=== PATIENT | male | born 1955 | race Caucasian/White ===

== ENCOUNTER 2017-08-08 11:31 | Inpatient (IN) ==
--- NOTE | 2017-08-07 15:47 | Discharge Summary ---
<Yenny Sanchez E - Last Filed: 08/07/17 15:45> Date of Encounter: 08/07/17 - Discharge Diagnosis (1) Arthritis of left hip Priority: Primary Status: Chronic (2) Status post total hip replacement, left Priority: Secondary Status: Acute (3) HTN (hypertension) Priority: Secondary Status: Chronic Qualifiers: Hypertension type: unspecified Qualified Code(s): I10 - Essential (primary ) hypertension (4) COPD (chronic obstructive pulmonary disease) Priority: Secondary Status: Chronic Qualifiers: COPD type: unspecified COPD Qualified Code(s): J44.9 - Chronic obstructive pulmonary disease, unspecified (5) HLD (hyperlipidemia) Priority: Secondary Status: Chronic Qualifiers: Hyperlipidemia type: unspecified Qualified Code(s): E78.5 - Hyperlipidemia , unspecified (6) GERD (gastroesophageal reflux disease) Priority: Secondary Status: Chronic Qualifiers: Esophagitis presence: esophagitis presence not specified Qualified Code(s) : K21.9 - Gastro-esophageal reflux disease without esophagitis (7) Diverticulosis Priority: Secondary Status: Chronic Qualifiers: Diverticulosis site: unspecified location Qualified Code(s): K57.90 - Diverticulosis of intestine, part unspecified, without perforation or abscess without bleeding (8) History of meningitis Priority: Secondary Status: Chronic (9) Obesity Priority: Secondary Status: Chronic Qualifiers: Obesity type: unspecified obesity type Obesity classification: unspecified obesity classification Serious obesity comorbidity presence: unspecified whether serious comorbidity present Qualified Code(s): E66.9 - Obesity, unspecified (10) Tobacco dependence Priority: Secondary Status: Chronic - Hospital Course Hospital course: Mr. Botello is a 61 year old male - Time Spent with Patient Total time spent providing and/or coordinating discharge services: - Discharge Medications Home Medications: Amlodipine Besylate 10 mg PO DAILY 05/12/17 [History] Gabapentin [Neurontin] 300 mg PO DAILY 05/12/17 [History] Montelukast [Singulair] 10 mg PO DAILY 05/12/17 [History] Aspirin Enteric Coated [Aspirin EC] 325 mg PO BID 10 Days #20 tab 08/07/17 [Rx] OxyCODONE Immed Rel [Roxicodone 5 MG] 5 mg PO Q6HR PRN 7 Days #28 tablet [Rx] Acetaminophen [Tylenol] 1,000 mg PO TID PRN 08/08/17 [History] Albuterol Sulfate [Ventolin Hfa] 2 puff IH Q4H PRN 08/08/17 [History] Atorvastatin Calcium [Lipitor] 20 mg PO DAILY 08/08/17 [History] Cyclobenzaprine [Flexeril] 10 mg PO TID PRN 08/08/17 [History] Fluticasone Propionate [Flovent Hfa] 110 mcg IH BID 08/08/17 [History] Omeprazole [PriLOSEC] 40 mg PO BID 08/08/17 [History] Tamsulosin [Flomax] 0.4 mg PO DAILY 08/08/17 [History] Allergies/Adverse Reactions: 3 Allergy/AdvReac Type Severity Reaction Status Date / Time No Known Allergies Allergy Verified 08/01/17 10:26 Primary care physician: Abdi Garcia MD - Patient Status Disposition: Home Health Service Condition: Good - Discharge Instructions Follow Up With: Brandin Ghotra MD [Partnered Physician] - 09/07/17 5:05 pm Rohini Paris PAC [Physician Air Pollution Specialist] - 08/18/17 9:30 am Additional Instructions: Discharge Instructions: Total Hip Replacement Please call [facility] ([phone]), your Primary Care Physician, or report to the Emergency Room if you have any of the following symptoms: Nausea, vomiting, fever greater that 101.5, swelling, chest pain, shortness of breath, increased pain/redness/drainage/odor for your incision site, numbness/ tingling, or any other concerning symptoms. ACTIVITY:Weight-bearing as tolerated for 8 weeks with hip dislocation precautions that physical therapy taught you. You may progress as tolerated under the guidance of your physical therapist. You do not need to sleep with a pillow between your legs. You can also seep on the operative side or on your stomach. MEDICATIONS: Upon discharge resume your home medications. Take all the medications as prescribed. Take a stool softener if taking narcotic pain medications. Stool softeners are only effective if you drink enough fluids. Drink 6-8 glass of water or fluids a day, unless this is not allowed for another health problem. Despite using stool softeners, if you haven't had a bowel movement in 3 days, please switch to a gentle laxative. Gentle laxatives are sold over the counter. You should have a bowel movement within 24 hours, if not call the office. You will be discharged from the hospital with a prescription for pain medication. You are encouraged to decrease the use of narcotic pain medication as tolerated. Should you require a refill, please call the office. [facility] prescribes narcotic pain medication for only 4-6 weeks after surgery. If you require pain medication beyond this time period, you may be referred to your Primary Care Physician or to the Pain Clinic for further evaluation. Plan ahead for refills on pain medication as many narcotics either need to be picked up at the office or mailed. It is best to call 48-72 hours in advance of needing a prescription refill so you don't run out of medication. To help control the post-operative pain, you may take NSAIDs (Aleve,Advil, Motrin, ibuprofen, naprosyn) or Tylenol as prescribed on the bottle in addition to the pain medication. ANTICOAGULATION (blood thinners): Continue your Aspirin, Lovenox or Coumadin as prescribed to help prevent a blood clot in the leg or in the lungs. As long as your incision remains dry and you tolerate the NSAIDs (Aleve, Advil, Motrin, Ibuprofen, Naprosyn), it is OK to use the NSAIDS while you are taking your anticoagulation medication. Should your incision start to drain, stop the NSAID and contact our office. Common symptoms of blood clot in the legs include: localized pain, swelling, calf tenderness, redness or discoloration of the skin. Blood clot in the lung symptoms include: shortness of breath, rapid pulse, sweating, and chest pain that worsens with deep breathing, coughing up blood, lightheadedness, feelings of anxiety. If you experience any of these symptoms notify your physician immediately, go to the emergency room, or if having trouble breathing, call 911. WOUND CARE: Leave the dressing on for 7 to 10days. You may change the dressing if it is saturated greater than 50%. Do not get the dressing wet at anytime. Wash your hands with antibacterial soap, rinse and dry prior to any wound care. If you have severo the visiting nurse or rehab facility can remove the stapes 10-14 days after surgery and place steri-strips across the wound. Leave the steri-strips in place until they fall off on their own. You may let water from the shower run on top of the steri-strips. If you do not have a visiting nurse or rehab facility, you will need to return to the office at 10-14 days for the severo to be removed. If you have itching or redness around the dressing call the office. FOLLOW-UP: Please follow up with your surgeon in the orthopedic clinic in 6 weeks from the day of surgery. If you have severo that need to be removed, you will need to come back to the office in 10-14 days from the day of surgery. <Brandin Ghotra - Last Filed: 08/10/17 09:08> Orders not resulted at time of discharge: Pending orders 08/08/17 01:00 XR hip complete LT [XR] Routine Hemoglobin and Hematocrit [HEME] Routine Date of Encounter: 08/10/17 Time of Encounter: 09:07 - Discharge Diagnosis (1) Obesity (BMI 30.0-34.9) Priority: Secondary Status: Chronic (2) Arthritis of left hip Priority: Primary Status: Chronic (3) Status post total hip replacement, left Priority: Primary Status: Acute (4) HLD (hyperlipidemia) Priority: Secondary Status: Chronic Qualifiers: Hyperlipidemia type: unspecified Qualified Code(s): E78.5 - Hyperlipidemia , unspecified (5) GERD (gastroesophageal reflux disease) Priority: Secondary Status: Chronic Qualifiers: Esophagitis presence: esophagitis presence not specified Qualified Code(s) : K21.9 - Gastro-esophageal reflux disease without esophagitis (6) Diverticulosis Priority: Secondary Status: Chronic Qualifiers: Diverticulosis site: unspecified location (7) History of meningitis Priority: Secondary Status: Chronic (8) Tobacco dependence Priority: Secondary Status: Chronic - Hospital Course Hospital course: Mr. Botello is a 61 year old male s/p total hip replacement The patient had an uneventful postoperative course. They received antibiotics and physical therapy and were discharged in stable condition. There will follow -up in the office in 2 weeks. - Time Spent with Patient Total time spent providing and/or coordinating discharge services: Primary care physician: Abdi Garcia MD - Patient Status Functional capacity at discharge: uses cane/walker Overall status at discharge: patient is progressing back to baseline
--- NOTE | 2017-08-07 15:51 | Physician Discharge Referral ---
Home Health/Hosp Referral Info Transfer to: Home Health Attending Provider: Dr Ghotra - Diagnosis (1) Arthritis of left hip Priority: Primary Status: Chronic (2) Status post total hip replacement, left Priority: Primary Status: Acute (3) HTN (hypertension) Priority: Secondary Status: Chronic (4) COPD (chronic obstructive pulmonary disease) Priority: Secondary Status: Chronic (5) HLD (hyperlipidemia) Priority: Secondary Status: Chronic (6) GERD (gastroesophageal reflux disease) Priority: Secondary Status: Chronic (7) Diverticulosis Priority: Secondary Status: Chronic (8) History of meningitis Priority: Secondary Status: Chronic (9) Obesity Priority: Secondary Status: Chronic (10) Tobacco dependence Status: Chronic - Respiratory Orders Smoking Cessation: Smoking cessation has been advised. For more information, call the [employer] Tobacco Quit Line at 9-440-GHKR-NOW. - Dressing/Wound Care Site: left hip Type of Dressing/Treatments w/Frequency: Opsite placed. Keep dressing intact until first follow up appointment. If > 50% saturated, notify office, remove dressing and place appropriate dressing back in place. Leave Zipline intact. Opsite dressing is water resistant, not water- proof. OK to shower, but do not get dressing wet. - Diet/Nutrition Diet/Nutrition Orders: Regular - Activity Activity Orders: Up ad waqas, Ambulate, Chair, Walker Activity: List: Total Hip replacement Precautions Apply cold therapy 3-6x/day for 20 minutes at a time. Encourage ambulation throughout the day and incentive spirometer 10x/hour. Elevate affected extremity as tolerated. Brace: Wear hip abduction pillow when laying/sleeping - Services Needed Following services are medically necessary services: Nursing, Home Health Aide, Physical Therapy, Occupational Therapy, Med Social Work - Transfer Medications Prescriptions: OxyCODONE Immed Rel [Roxicodone 5 MG] 5 mg PO Q6HR PRN 7 Days #28 tablet PRN Reason: Severe Pain Aspirin Enteric Coated [Aspirin EC] 325 mg PO BID 10 Days #20 tab Home Medications: Amlodipine Besylate 10 mg PO DAILY 05/12/17 [History] Gabapentin [Neurontin] 300 mg PO DAILY 05/12/17 [History] Montelukast [Singulair] 10 mg PO DAILY 05/12/17 [History] Omeprazole [PriLOSEC] 20 mg PO DAILY 05/12/17 [History] Aspirin Enteric Coated [Aspirin EC] 325 mg PO BID 10 Days #20 tab 08/07/17 [Rx] OxyCODONE Immed Rel [Roxicodone 5 MG] 5 mg PO Q6HR PRN 7 Days #28 tablet [Rx] Allergies/Adverse Reactions: 3 Allergy/AdvReac Type Severity Reaction Status Date / Time No Known Allergies Allergy Verified 08/01/17 10:26 Certification: Further, I certify that my clinical findings support that this patient is homebound (i.e. absences from home require considerable and taxing effort and are for medical reasons or anabaptist services or infrequently or short duration when for other reasons) because: Homebound Reason: Post-surgery restriction and or conditions limit ability to leave home Attestation: My signature below is to certify that this patient is under my care and that I, or nurse practitioner, or a physician television production assistant working with me, has a face-to- face encounter with this patient.
--- NOTE | 2017-08-08 11:50 | History & Physical Report ---
Date of Encounter: 08/08/17 Time of Encounter: 11:50 24 Hour HP Update - Instructions Instructions: If the History and Physical is less than 30 days old and was completed prior to A.M. admission and or procedure and has NOT been updated on calendar day of procedure please complete this update prior to performing procedure. - Update Patient reports changes in Medical Condition: No Changes in examination, assessment, or condition: No Changes in Medication: No Preop tests/diagnostics Reviewed: Yes Surgery Remains Indicated: Yes Consent for Planned Operative Procedure(s) Verified: Yes - Pre-Operative Checklist Preoperative Checklist Indicated: No Prophylactic Antibiotic Ordered: Yes Is VTE Prophylaxis Indicated?: Yes
[2017-08-08] MEDS ORDERED: CeFAZolin Syr 2,000MG/20 ML 2,000 MG/20 ML SYRINGE IVPB ONE (11:55)
[2017-08-08] MEDS ORDERED: Ringers Solution, Lactated 1,000 ML IVC SCH ×2 (12:00→16:43)
--- NOTE | 2017-08-08 12:34 | Anesthesia Evaluation PreOp ---
Date of Encounter: 08/08/17 Time of Encounter: 12:31 - Past History Planned Operation: Left total hip, robotic Cardiac History: HTN Pulmonary History: Former smoker (quit 1 year ago), Asthma POOL TECHNICIAN History: Other (cervical myofascial pain, right cervical foraminal stenosis , etc -- limited neck ROM) Other Medical History: GERD Anesthesia History: No Prior Anesthetic Complications Alcohol Use: none Drug use: none Medications and Allergies Amlodipine Besylate 10 mg PO DAILY 05/12/17 [History] Gabapentin [Neurontin] 300 mg PO DAILY 05/12/17 [History] Montelukast [Singulair] 10 mg PO DAILY 05/12/17 [History] Aspirin Enteric Coated [Aspirin EC] 325 mg PO BID 10 Days #20 tab 08/07/17 [Rx] OxyCODONE Immed Rel [Roxicodone 5 MG] 5 mg PO Q6HR PRN 7 Days #28 tablet [Rx] Acetaminophen [Tylenol] 1,000 mg PO TID PRN 08/08/17 [History] Albuterol Sulfate [Ventolin Hfa] 2 puff IH Q4H PRN 08/08/17 [History] Atorvastatin Calcium [Lipitor] 20 mg PO DAILY 08/08/17 [History] Cyclobenzaprine [Flexeril] 10 mg PO TID PRN 08/08/17 [History] Fluticasone Propionate [Flovent Hfa] 110 mcg IH BID 08/08/17 [History] Omeprazole [PriLOSEC] 40 mg PO BID 08/08/17 [History] Tamsulosin [Flomax] 0.4 mg PO DAILY 08/08/17 [History] 3 Allergy/AdvReac Type Severity Reaction Status Date / Time No Known Allergies Allergy Verified 08/01/17 10:26 - Meds/Allergy Pre-op Review Medications Reviewed: Yes Allergies Reviewed: Yes Beta Blockers on Current Med List: No Anesthesia Results - Labs Laboratory Tests 06/24/17 08/01/17 08/01/17 14:48 10:14 10:14 WBC 4.9 Hgb 15.0 Hct 44.9 Plt Count 213 PT 11.8 INR 1.1 APTT 30.8 Sodium Potassium Chloride Carbon Dioxide BUN Creatinine Est GFR ( Amer) Est GFR (Non-Af Amer) BUN/Creatinine Ratio Glucose 104 08/01/17 10:14 WBC Hgb Hct Plt Count PT INR APTT Sodium 140 Potassium 4.1 Chloride 107 Carbon Dioxide 27 BUN 10 Creatinine 0.89 Est GFR ( Amer) > 60 Est GFR (Non-Af Amer) > 60 BUN/Creatinine Ratio 11 Glucose - Imaging EKG: report reviewed, image reviewed (SR) Anesthesia Exam Last Vital Signs Temp 98.4 F 08/08/17 11:56 Pulse 72 08/08/17 11:56 Resp 18 08/08/17 11:56 BP 148/76 08/08/17 11:56 Pulse Ox 96 08/08/17 11:56 Weight: 101 kg NPO (# of Hours): > 8 hrs - HEENT Pupil (Motor): Pupils equal, EOMI Mallampati: II Teeth: Normal Oral Opening: Greater than 3 - POOL TECHNICIAN LOC: Oriented - Cardiac Rhythm: Regular Murmur: None - Pulmonary Breath Sounds: bilateral Clear Respiratory Effort: Symmetrical Anesthesia Assess/Plan ASA Score: 2 Modified [place] Scale for Level of Consciousness: Cooperative, oriented, and tranquil Anesthetic Plan: General, Precautions (Patient reluctant to undergo spinal at this time - will proceed with general anesthesia) Monitoring Plan: Standard Monitors Recovery Plan: PACU
[2017-08-08] MEDS ORDERED: *HR* Propofol 200 MG/20 ML VIAL IVP ONE (12:50)
[2017-08-08] MEDS ORDERED: Lidocaine -MPF 2% 2 ML VIAL ONE (12:50)
[2017-08-08] MEDS ORDERED: Propofol 500 MG/50 ML INFUS..BTL ONE (12:50)
[2017-08-08] MEDS ORDERED: Ketorolac 30 MG/ML VIAL ONE (12:50)
[2017-08-08] MEDS ORDERED: *HR* Midazolam HCl 2 MG/2 ML VIAL ONE (13:16)
[2017-08-08] MEDS ORDERED: *HR* FentaNYL (PF) 100 MCG/2 ML VIAL ONE ×2 (13:16→15:04)
[2017-08-08] MEDS ORDERED: Ethanol\\Acetic Acid\\Na Ace\\Ben 1,000 ML IRRIG.SOLN IR ONE (13:30)
[2017-08-08] MEDS ORDERED: Dexamethasone 4 MG/ML VIAL ONE (13:37)
[2017-08-08] MEDS ORDERED: Ondansetron 4 MG/2 ML VIAL ONE (13:37)
[2017-08-08] MEDS ORDERED: *HR* PHENYLEPHRINE 1,000 MCG/10 ML SYRINGE IVP ONE (14:28)
[2017-08-08] MEDS ORDERED: *HR* Promethazine 25 MG/ML VIAL IVP PRN (14:40)
[2017-08-08] MEDS ORDERED: Acetaminophen IV 1,000 MG/100 ML INFUS..BTL ONE (15:12)
--- NOTE | 2017-08-08 15:26 | Orthopedic Operative Note ---
Date of procedure: 08/08/17 Pre-op diagnosis: Left hip arthritis Procedure: Procedure: Left Total Hip Replacment robotic-assisted Estimated blood loss: 200 cc Hardware: Metal and polyethylene replacement. Suhail DM Cup: cup 64 Femoral size 8 stem Head: +12 head with Chanelle Procedural Notes: Grade 4 arthritic changes femoral head acetabular socket, procedure performed with robotic assistance. 1 cm shorter operative leg as assessed by CT scan preoperatively Operative procedure: The patient was brought to the operating room and placed on the operating room table. After general anesthesia was administered the patient was placed in the lateral decubitus position with the operative leg up. All pressure points were padded appropriately and the head was stabilized in the neutral position. The operative extremity was prepped and draped in the sterile surgical fashion patient received IV antibiotic prior to skin incision. 3 Steinmann pins were placed in the iliac crest 3 cm proximal to the anterior superior iliac spine this was for the robotic-assisted sensor. This was done through a small 2 cm incision. A standard posterior approach is made to the operative hip, the incision was made through the skin and subcutaneous tissue hemostasis was obtained with Bovie cautery. Using careful sharp dissection the fascia was identified and incised exposing the external rotators. The femoral checkpoint was placed leg length was measured at this time utilizing robotic assistance. The external rotators were released off the greater trochanter and tagged with # 2 FiberWire suture. The capsule was T'd open and the hip was brought into internal rotation. Patient noted to have grade 4 arthritic changes femoral head. The femoral neck cut was made at the appropriate level roughly 15 mm proximal to the lesser trochanter aced on preoperative templating. An anterior capsulotomy was performed for the anterior retractor. Soft tissues removed from the acetabulum. Patient noted to have grade 4 arthritic changes acetabulum. The acetabulum checkpoint was placed confirmed. The acetabulum was then mapped with robotic assistance. Based on the preoperative plan the acetabulum was reamed in one step with a 63 reamer. The 64 acetabulum was impacted with robotic assistance and 39 degrees of abduction and 24 degrees of anteversion. The hip was brought back in to internal rotation and prepared with the icebox man followed by the canal finder followed by the reaming process to a size 7/ 8 broaching process in 20 degrees anteversion. It was broached up to the appropriate size 8. Trial reduction revealed leg lengths close to normal. The femoral implant was impacted in place in 20 degrees of anteversion. Trial reduction found the hip to be stable with 8 head and Chanelle. The trials were removed and the real implants were impacted in place. The hip was reduced, patient had robotic confirmed leg length of 1 mm longer than the contralateral side. The hip had excellent stability with forward flexion to 90 degrees adduction of 30 degrees and internal rotation of 60 degrees. The hip had no shuck. The hips after 2 minutes with a antibacterial solution. It was irrigated out with 2 L of pulse irrigation. The checkpoints were removed, Steinmann pins were removed. The hip was closed by the PA. The deep tissue was irrigated and closed deep with #1 PDS suture superficially with 0 PDS suture and skin was closed with Dermabond and zip tie. The patient was placed in a sterile dressing and abduction pillow. The patient was extubated and transferred to the recovery room in stable condition. Anesthesia: GETA Surgeon: Brandin Ghotra Was there an electrician's assistant present: Yes Social Worker Clinical: Rohini Paris Estimated blood loss (cc): 200 Condition: stable Disposition: PACU
[2017-08-08] MEDS: *HR* HYDROmorphone (PF) 1 MG/ML SYRINGE IVP PRN ×2 (16:05→16:10)
[2017-08-08] MEDS ORDERED: traMADol 50 MG TABLET PO PRN (16:43)
[2017-08-08] MEDS ORDERED: Sennosides 8.6 MG TABLET PO PRN (16:43)
[2017-08-08] MEDS ORDERED: *HR* OxyCODONE/APAP 5/325 TABLET PO PRN (16:43)
[2017-08-08] MEDS ORDERED: Ondansetron 4 MG/2 ML VIAL IVP PRN (16:43)
[2017-08-08] MEDS ORDERED: Naloxone 0.4 MG/ML INJ IVP PRN (16:43)
[2017-08-08] MEDS ORDERED: MOM Conc 10 ML UD.LIQ PO PRN (16:43)
[2017-08-08] MEDS ORDERED: Temazepam 15 MG CAPSULE PO PRN (16:43)
--- NOTE | 2017-08-08 16:46 | Anesthesia Evaluation Post Op ---
Date of Encounter: 08/08/17 Time of Encounter: 16:44 - Vital Signs Vital Signs: Vital Signs/O2 Sat, Most Current Temp Pulse Resp BP Pulse Ox 97.0 F L 67 16 139/68 98 08/08/17 16:17 08/08/17 16:37 08/08/17 16:37 08/08/17 16:37 08/08/17 16:37 - Lungs Lungs: Clear Ascult./Percussion - Airway Airway: Non-obstructed - Cardiovascular Regular Rate - Mental Status Mental Status: Asleep with brisk response to light stimulation - Pain Pain Scale: 5 Pain Scale used: Numeric (1 - 10) - Nausea Vomiting Nausea Vomiting: Not Present - Hydration Hydration: Ice chips, Has not voided - Discharge PostOp Status: Transfer Patient to floor
[2017-08-08 16:56] LABS: Hematocrit 39.6 % (37.5-50.1); Hemoglobin 13.4 g/dL (12.9-16.9)
[2017-08-08] MEDS: Ascorbic Acid 500 MG TABLET PO SCH (17:13)
[2017-08-08] MEDS: *HR* OxyCODONE Immed Rel 5 MG TABLET PO PRN ×2 (17:14→22:41)
[2017-08-08] MEDS: *HR* Enoxaparin 30 MG/0.3 ML SYRINGE SQ SCH (17:15)
[2017-08-08] MEDS ORDERED: *HR* Enoxaparin 30 MG/0.3 ML SYRINGE SQ SCH (18:00)
[2017-08-08] MEDS: Beclomethasone 80mcg MDI IH SCH (19:58)
[2017-08-08] MEDS ORDERED: CeFAZolin Premix DUPLEX 2,000 MG/50 ML BAG IVPB SCH (22:00)
[2017-08-08] MEDS: CeFAZolin Premix DUPLEX 2,000 MG/50 ML BAG IVPB SCH (22:36)
[2017-08-09 06:06] LABS: Hematocrit 34.7 % (37.5-50.1); Hemoglobin 12.1 g/dL (12.9-16.9)
[2017-08-09 06:23] LABS: BUN/Creatinine Ratio 16 (6-26); Blood Urea Nitrogen 15 mg/dL (6-20); Calcium 8.6 mg/dL (8.6-10.3); Carbon Dioxide 27 mEq/L (23-29); Chloride 103 mEq/L (98-107); Glucose 127 mg/dL (70-105); Osmolality,Calculated 284 (280-300); Potassium 3.9 mEq/L (3.5-5.1); Sodium 136 mEq/L (136-145); eGFR For African Americans > 60 (> 60); eGFR For Non-African Americans > 60 (> 60)
[2017-08-09] MEDS: CeFAZolin Premix DUPLEX 2,000 MG/50 ML BAG IVPB SCH (06:34)
[2017-08-09] MEDS: *HR* Enoxaparin 30 MG/0.3 ML SYRINGE SQ SCH ×2 (06:35→16:57)
[2017-08-09] MEDS: *HR* OxyCODONE Immed Rel 5 MG TABLET PO PRN ×3 (06:41→15:34)
--- NOTE | 2017-08-09 07:06 | Orthopedics Progress Note ---
Date of Encounter: 08/09/17 Time of Encounter: 07:05 - Assessment and Plan (1) Obesity (BMI 30.0-34.9) Current Visit: Yes Status: Chronic (2) Arthritis of left hip Current Visit: No Status: Chronic (3) Status post total hip replacement, left Current Visit: No Status: Acute (4) HLD (hyperlipidemia) Current Visit: No Status: Chronic Qualifiers: Hyperlipidemia type: unspecified Qualified Code(s): E78.5 - Hyperlipidemia , unspecified (5) GERD (gastroesophageal reflux disease) Current Visit: No Status: Chronic Qualifiers: Esophagitis presence: esophagitis presence not specified Qualified Code(s) : K21.9 - Gastro-esophageal reflux disease without esophagitis (6) Diverticulosis Current Visit: No Status: Chronic Qualifiers: Diverticulosis site: unspecified location Qualified Code(s): K57.90 - Diverticulosis of intestine, part unspecified, without perforation or abscess without bleeding (7) History of meningitis Current Visit: No Status: Chronic (8) Tobacco dependence Current Visit: No Status: Chronic Subjective Interval history: Patient was seen this morning doing well without complaints. Afebrile vital signs stable. Operative extremity: Neurovascularly intact Dressing clean dry and intact Calves nontender Assessment and plan: Continue with postoperative care Hematocrit 34 Objective Vital signs: Vital Signs Temp Pulse Resp BP Pulse Ox 08/09/17 02:35 98.7 F 69 16 132/75 94 08/08/17 23:49 97.9 F 72 17 136/76 97 08/08/17 19:58 16 97 08/08/17 17:56 97.6 F 83 16 151/79 98 08/08/17 17:20 144/58 97 08/08/17 17:07 97.4 F L 79 16 129/68 97 08/08/17 16:46 97.4 F L 68 16 122/70 96 08/08/17 16:37 67 16 139/68 98 08/08/17 16:27 69 16 130/75 97 08/08/17 16:17 97.0 F L 78 16 135/98 95 08/08/17 16:07 75 20 109/99 98 08/08/17 15:57 75 20 140/90 95 08/08/17 15:47 97.0 F L 83 20 136/79 99 08/08/17 11:56 98.4 F 72 18 148/76 96 Intake and Output 08/08/17 08/08/17 08/09/17 15:59 23:59 07:59 Intake Total 20 290 / 290 0 / 0 Output Total 200 / 200 475 / 475 0 / 0 Balance -180 / -180 -185 / -185 0 / 0 Intake: IV Fluids / 20 50 / 50 Ancef Premix DUPLEX 2,000 mg In 50 / 50 50 ml @ 100 mls/hr IVPB Q8H CLARISA Rx#:[id number] Ancef Syringe 2,000 MG/20 ML 2, 20 / 20 000 mg In 20 ml @ 200 mls/hr IVPB PREOP ONE Rx#:[id number] Oral 240 / 240 0 / 0 Output: Urine 475 / 475 0 / 0 Estimated Blood Loss 200 / 200 Other: Meal Dinner Percent of Meal Consumed 90% Weight 100.698 kg 106.44 kg Patient Weight 08/09/17 23:59 Weight 106.44 kg - Labs CBC & BMP: 08/09/17 05:32 08/09/17 05:32 Labs: Abnormal lab results Hgb 12.1 g/dL (12.9-16.9) L 08/09/17 05:32 Hct 34.7 % (37.5-50.1) L 08/09/17 05:32 Glucose 127 mg/dL (70-105) H 08/09/17 05:32 - VTE Documentation of Mechanical Device: Venous foot pump, device Consult Discharge Plan - Plan Referrals: Abdi Garcia MD [Primary Care Provider] -
[2017-08-09] MEDS: Beclomethasone 80mcg MDI IH SCH ×2 (07:17→20:29)
[2017-08-09] MEDS: amLODIPine 5 MG TABLET PO SCH (08:04)
[2017-08-09] MEDS: Multivit/Ca/Min/Fe/FA 1 TAB TABLET PO SCH (08:04)
[2017-08-09] MEDS: Ascorbic Acid 500 MG TABLET PO SCH ×2 (08:04→16:57)
[2017-08-09] MEDS: Gabapentin 300 MG CAPSULE PO SCH (08:05)
--- NOTE | 2017-08-09 17:40 | Event Note ---
Date of Encounter: 08/09/17 Time of Encounter: 12:45 PCR- POD#1 L THR robotic 08/08/17 Brandin PCR - Patient seen at bedside. Labwork and medications reviewed. Pain control: Adequate Participating in PT. All questions and concerns addressed. Educated on use of incentive spirometer, ambulation, and hydration. Patient educated on post-operative restrictions and care. Addressed: see above. D/C plan: Home with
[2017-08-10] MEDS: *HR* OxyCODONE Immed Rel 5 MG TABLET PO PRN ×2 (01:27→06:09)
[2017-08-10] MEDS: *HR* Enoxaparin 30 MG/0.3 ML SYRINGE SQ SCH (06:09)
[2017-08-10 06:28] LABS: Hematocrit 32.2 % (37.5-50.1)
[2017-08-10 06:29] VITALS: BP 132/72
[2017-08-10 06:49] LABS: BUN/Creatinine Ratio 12 (6-26); Blood Urea Nitrogen 13 mg/dL (6-20); Calcium 8.6 mg/dL (8.6-10.3); Carbon Dioxide 30 mEq/L (23-29); Chloride 104 mEq/L (98-107); Glucose 100 mg/dL (70-105); Osmolality,Calculated 288 (280-300); Potassium 4.1 mEq/L (3.5-5.1); Sodium 139 mEq/L (136-145); eGFR For African Americans > 60 (> 60); eGFR For Non-African Americans > 60 (> 60)
[2017-08-10] MEDS: Ascorbic Acid 500 MG TABLET PO SCH (08:00)
[2017-08-10] MEDS: Multivit/Ca/Min/Fe/FA 1 TAB TABLET PO SCH (08:01)
[2017-08-10] MEDS: Gabapentin 300 MG CAPSULE PO SCH (08:01)
[2017-08-10] MEDS: amLODIPine 5 MG TABLET PO SCH (08:03)
[2017-08-10] MEDS: Beclomethasone 80mcg MDI IH SCH (08:14)
--- NOTE | 2017-08-10 09:11 | Orthopedics Progress Note ---
Date of Encounter: 08/10/17 Time of Encounter: 09:09 - Assessment and Plan (1) Obesity (BMI 30.0-34.9) Current Visit: Yes Status: Chronic (2) Arthritis of left hip Current Visit: No Status: Chronic (3) Status post total hip replacement, left Current Visit: No Status: Acute (4) HLD (hyperlipidemia) Current Visit: No Status: Chronic Qualifiers: Hyperlipidemia type: unspecified Qualified Code(s): E78.5 - Hyperlipidemia , unspecified (5) GERD (gastroesophageal reflux disease) Current Visit: No Status: Chronic Qualifiers: Esophagitis presence: esophagitis presence not specified Qualified Code(s) : K21.9 - Gastro-esophageal reflux disease without esophagitis (6) Diverticulosis Current Visit: No Status: Chronic Qualifiers: Diverticulosis site: unspecified location Diverticulosis bleeding: diverticulosis without bleeding Qualified Code(s): K57.90 - Diverticulosis of intestine, part unspecified, without perforation or abscess without bleeding (7) History of meningitis Current Visit: No Status: Chronic (8) Tobacco dependence Current Visit: No Status: Chronic Subjective Interval history: Patient was seen this morning doing well without complaints. Afebrile vital signs stable. Operative extremity: Neurovascularly intact Dressing clean dry and intact Calves nontender Assessment and plan: Continue with postoperative care Hematocrit 32 dc today Objective Vital signs: Vital Signs Temp Pulse Resp BP Pulse Ox 08/10/17 08:19 92 08/10/17 08:15 16 96 08/10/17 06:26 98.0 F 82 16 132/72 92 08/10/17 00:38 98.4 F 74 14 120/73 96 08/09/17 20:30 12 97 08/09/17 19:29 98.2 F 69 14 146/81 96 08/09/17 16:12 98.9 F 67 16 123/73 97 08/09/17 11:46 98.7 F 72 18 112/71 95 Intake and Output 08/09/17 08/10/17 08/10/17 23:59 07:59 15:59 Intake Total 690 / 690 350 / 350 240 / 240 Output Total 575 / 575 855 / 855 Balance 115 / 115 -505 / -505 240 / 240 Intake: Oral 690 / 690 350 / 350 240 / 240 Output: Urine 575 / 575 855 / 855 Other: Meal Lunch Breakfast Percent of Meal Consumed 80% 95% - Labs CBC & BMP: 08/10/17 05:45 08/10/17 05:45 Labs: Abnormal lab results Hgb 11.0 g/dL (12.9-16.9) L 08/10/17 05:45 Hct 32.2 % (37.5-50.1) L 08/10/17 05:45 Carbon Dioxide 30 mEq/L (23-29) H 08/10/17 05:45 - VTE Documentation of Mechanical Device: Venous foot pump, device Consult Discharge Plan - Plan Additional Instructions: Discharge Instructions: Total Hip Replacement Please call [facility] ([phone]), your Primary Care Physician, or report to the Emergency Room if you have any of the following symptoms: Nausea, vomiting, fever greater that 101.5, swelling, chest pain, shortness of breath, increased pain/redness/drainage/odor for your incision site, numbness/ tingling, or any other concerning symptoms. ACTIVITY:Weight-bearing as tolerated for 8 weeks with hip dislocation precautions that physical therapy taught you. You may progress as tolerated under the guidance of your physical therapist. You do not need to sleep with a pillow between your legs. You can also seep on the operative side or on your stomach. MEDICATIONS: Upon discharge resume your home medications. Take all the medications as prescribed. Take a stool softener if taking narcotic pain medications. Stool softeners are only effective if you drink enough fluids. Drink 6-8 glass of water or fluids a day, unless this is not allowed for another health problem. Despite using stool softeners, if you haven't had a bowel movement in 3 days, please switch to a gentle laxative. Gentle laxatives are sold over the counter. You should have a bowel movement within 24 hours, if not call the office. You will be discharged from the hospital with a prescription for pain medication. You are encouraged to decrease the use of narcotic pain medication as tolerated. Should you require a refill, please call the office. [facility] prescribes narcotic pain medication for only 4-6 weeks after surgery. If you require pain medication beyond this time period, you may be referred to your Primary Care Physician or to the Pain Clinic for further evaluation. Plan ahead for refills on pain medication as many narcotics either need to be picked up at the office or mailed. It is best to call 48-72 hours in advance of needing a prescription refill so you don't run out of medication. To help control the post-operative pain, you may take NSAIDs (Aleve,Advil, Motrin, ibuprofen, naprosyn) or Tylenol as prescribed on the bottle in addition to the pain medication. ANTICOAGULATION (blood thinners): Continue your Aspirin, Lovenox or Coumadin as prescribed to help prevent a blood clot in the leg or in the lungs. As long as your incision remains dry and you tolerate the NSAIDs (Aleve, Advil, Motrin, Ibuprofen, Naprosyn), it is OK to use the NSAIDS while you are taking your anticoagulation medication. Should your incision start to drain, stop the NSAID and contact our office. Common symptoms of blood clot in the legs include: localized pain, swelling, calf tenderness, redness or discoloration of the skin. Blood clot in the lung symptoms include: shortness of breath, rapid pulse, sweating, and chest pain that worsens with deep breathing, coughing up blood, lightheadedness, feelings of anxiety. If you experience any of these symptoms notify your physician immediately, go to the emergency room, or if having trouble breathing, call 911. WOUND CARE: Leave the dressing on for 7 to 10days. You may change the dressing if it is saturated greater than 50%. Do not get the dressing wet at anytime. Wash your hands with antibacterial soap, rinse and dry prior to any wound care. If you have severo the visiting nurse or rehab facility can remove the stapes 10-14 days after surgery and place steri-strips across the wound. Leave the steri-strips in place until they fall off on their own. You may let water from the shower run on top of the steri-strips. If you do not have a visiting nurse or rehab facility, you will need to return to the office at 10-14 days for the severo to be removed. If you have itching or redness around the dressing call the office. FOLLOW-UP: Please follow up with your surgeon in the orthopedic clinic in 6 weeks from the day of surgery. If you have severo that need to be removed, you will need to come back to the office in 10-14 days from the day of surgery. Referrals: Brandin Ghotra MD [Partnered Physician] - 09/07/17 5:05 pm Rohini Paris PAC [Physician Sugar Refiner] - 08/18/17 9:30 am
--- NOTE | 2017-08-10 17:46 | Event Note ---
Date of Encounter: 08/10/17 Time of Encounter: 11:40 PCR- POD#2 L THR robotic 08/08/17 Brandin PCR - Patient seen at bedside. Family at bedside. Labwork and medications reviewed. Pain control: Adequate Participating in PT. All questions and concerns addressed. Educated on use of incentive spirometer, ambulation, and hydration. Patient educated on post-operative restrictions and care. Addressed: see above. D/C plan: Home with HH today
== END 2017-08-10 11:49 | disposition home health service (06) | DRG 301 ==
LOC: SAMDAY 11:31 → 3NENU 16:41 → EDSTATUS 17:20
PROVIDERS: ADMIT Orthopaedic Surgery; ATTEND Orthopaedic Surgery

== ENCOUNTER 2018-04-06 10:02 | Observation (INO) ==
[2018-04-06 10:53] LABS: Basophils % 0.2 %; Eosinophils % 0.6 %; Hematocrit 42.4 % (37.5-50.1); Hemoglobin 14.3 g/dL (12.9-16.9); Immature Granulocytes % 0.2 % (0-4); Lymphocytes # 1.1 K/mcL (0.6-4.6); Lymphocytes % 20.5 %; Mean Corpuscular HGB Conc 33.7 g/dL (31.6-35.5); Mean Corpuscular Hemoglobin 30.1 pg (28.0-33.3); Mean Corpuscular Volume 89.3 fL (83.0-100.0); Mean Platelet Volume 12.2 fL (9.4-12.4); Monocytes # 0.3 K/mcL (0.0-1.3); Monocytes % 6.5 %; Neutrophils # 3.8 K/mcL (1.6-8.9); Platelet Count 160 K/mcL (140-400); Red Blood Count 4.75 M/mcL (4.19-5.50); Red Cell Distribution Width 12.8 % (11.5-14.5)
[2018-04-06] MEDS ORDERED: Isovue-370 500 ML INFUS..BTL IV ONE (10:58)
[2018-04-06 11:10] LABS: BUN/Creatinine Ratio 13 (6-26); Blood Urea Nitrogen 11 mg/dL (8-23); Calcium 9.1 mg/dL (8.6-10.3); Carbon Dioxide 27 mEq/L (23-29); Chloride 106 mEq/L (98-107); Glucose 123 mg/dL (70-105); Osmolality,Calculated 289 (280-300); Potassium 3.9 mEq/L (3.5-5.1); Sodium 139 mEq/L (136-145); Troponin I < 0.03 ng/mL (< 0.04); eGFR For Non-African Americans > 60 (> 60)
[2018-04-06 11:27] LABS: Bilirubin,Urine Negative (Negative); Blood,Urine Negative (Negative); Clarity,Urine Clear (Clear); Color,Urine Yellow (Yellow); Glucose,Urine (UA) Normal (Normal); Ketones,Urine Negative (Negative); Leukocyte Esterase,Urine Negative (Negative); Nitrite,Urine Negative (Negative); PH,Urine 7.5 pH Units (5.0-8.0); Protein,Urine Negative (Neg-Trace); Specific Gravity,Urine 1.013 (1.010-1.025); Urobilinogen,Urine Normal (Normal)
[2018-04-06] MEDS: 0.9 % Sodium Chloride 1,000 ML IVC SCH ×2 (11:34→20:34)
--- NOTE | 2018-04-06 11:40 | Emergency Department Note ---
Disposition Clinical Impression: HTN (hypertension), Dizziness, Nystagmus Disposition: Admitted As Inpatient Condition: Fair Referrals: NONE,PCP [Primary Care Provider] - Forms: ED Satisfaction Letter Time of Disposition: 12:53 General Adult HPI - General Chief complaint: ED Dizziness Stated complaint: Dizzy Time Seen by Provider: 04/06/18 10:06 Source: patient Limitations: no limitations - History of Present Illness Pain Scale: 5 - Related Data Home Medications Medication Instructions Recorded Confirmed Amlodipine Besylate 10 mg PO DAILY 05/12/17 08/08/17 Gabapentin [Neurontin] 300 mg PO DAILY 05/12/17 08/08/17 Montelukast [Singulair] 10 mg PO DAILY 05/12/17 08/08/17 Acetaminophen [Tylenol] 1,000 mg PO TID PRN 08/08/17 08/08/17 Albuterol Sulfate [Ventolin Hfa] 2 puff IH Q4H PRN 08/08/17 08/08/17 Atorvastatin Calcium [Lipitor] 20 mg PO DAILY 08/08/17 08/08/17 Cyclobenzaprine [Flexeril] 10 mg PO TID PRN 08/08/17 08/08/17 Fluticasone Propionate [Flovent 110 mcg IH BID 08/08/17 08/08/17 Hfa] Omeprazole [PriLOSEC] 40 mg PO BID 08/08/17 08/08/17 Tamsulosin [Flomax] 0.4 mg PO DAILY 08/08/17 08/08/17 Previous Rx's Medication Instructions Recorded Aspirin Enteric Coated [Aspirin EC] 325 mg PO BID 10 Days #20 tab 08/07/17 OxyCODONE Immed Rel [Roxicodone 5 5 mg PO Q6HR PRN 7 Days #28 tablet 08/07/17 MG] Allergies Allergy/AdvReac Type Severity Reaction Status Date / Time No Known Allergies Allergy Verified 10/08/17 09:31 Past Medical History - Past Medical History Medical history: Reports: arthritis, asthma, GERD, hyperlipidemia, hypertension, renal disease Surgical history: Reports: orthopedic, other Psychiatric history: Reports: no psych history - Social History Smoking Status: Former smoker Smokeless Tobacco Status: No Alcohol use: Reports: none Drug use: Reports: none Physical Exam - General Limitations: no limitations General appearance: alert, in no apparent distress Course Vital Signs Temperature 97.8 F 04/06/18 10:06 Pulse Rate 75 04/06/18 10:06 Respiratory Rate 18 04/06/18 10:06 Blood Pressure 215/116 04/06/18 10:06 O2 Sat by Pulse Oximetry 98 04/06/18 10:06 Temperature 97.8 F 04/06/18 10:14 Pulse Rate 62 04/06/18 12:16 Respiratory Rate 16 04/06/18 12:16 Blood Pressure 142/72 04/06/18 12:16 O2 Sat by Pulse Oximetry 99 04/06/18 12:16 Oxygen Delivery Oxygen Delivery Room Air Medical Decision Making - Lab Data Result diagrams: 04/06/18 10:38 04/06/18 10:38 Lab Results 04/06/18 04/06/18 04/06/18 Range/Units 10:38 10:38 11:00 WBC 5.2 (4.3-11.1) K/mcL RBC 4.75 (4.19-5.50) M/mcL Hgb 14.3 (12.9-16.9) g/dL Hct 42.4 (37.5-50.1) % MCV 89.3 (83.0-100.0) fL MCH 30.1 (28.0-33.3) pg MCHC 33.7 (31.6-35.5) g/dL RDW 12.8 (11.5-14.5) % Plt Count 160 (140-400) K/mcL MPV 12.2 (9.4-12.4) fL Immature Gran % 0.2 (0-4) % Seg Neutrophils % 72.0 % Lymphocytes % 20.5 % Monocytes % 6.5 % Eosinophils % 0.6 % Basophils % 0.2 % Neutrophils # 3.8 (1.6-8.9) K/mcL Lymphocytes # 1.1 (0.6-4.6) K/mcL Monocytes # 0.3 (0.0-1.3) K/mcL Eosinophils # 0.0 (0.0-0.6) K/mcL Basophils # 0.0 (0.0-0.2) K/mcL Sodium 139 (136-145) mEq/L Potassium 3.9 (3.5-5.1) mEq/L Chloride 106 (98-107) mEq/L Carbon Dioxide 27 (23-29) mEq/L BUN 11 (8-23) mg/dL Creatinine 0.86 (0.70-1.30) mg/dL Est GFR ( Amer) > 60 (> 60) Est GFR (Non-Af Amer) > 60 (> 60) BUN/Creatinine Ratio 13 (6-26) Glucose 123 H (70-105) mg/dL Calculated Osmolality 289 (280-300) Calcium 9.1 (8.6-10.3) mg/dL Troponin I < 0.03 (< 0.04) ng/mL Urine Color Yellow (Yellow) Urine Clarity Clear (Clear) Urine pH 7.5 (5.0-8.0) pH Units Ur Specific [place] 1.013 (1.010-1.025) Urine Protein Negative (Neg-Trace) mg/dL Urine Glucose (UA) Normal (Normal) mg/dL Urine Ketones Negative (Negative) mg/dL Urine Blood Negative (Negative) Urine Nitrite Negative (Negative) Urine Bilirubin Negative (Negative) Urine Urobilinogen Normal (Normal) mg/dL Ur Leukocyte Esterase Negative (Negative) Ur Culture Indicated? NO (NO) Attestation Statement - Attestation Attestation: I, Brent Webber DO, examined this patient [id number] and my medical decision-making was reviewed with Cahva Ospina DO , Resident Physician. I agree with the documented findings, disposition and treatment plan as described except to the extent set forth below. Please see my progress notes for details. 62-year-old male presents to the emergency room for evaluation of right-sided neck pain and tingling sensation on his right arm as well as persistent dizziness over the last 2-3 days. Patient said that the symptoms were present last night when he went to bed but not nearly as bad as they were this morning when he woke up. Patient denies any falls trauma or injury. He has a history of intermittent dizziness in the past but is never been seen and evaluated or treated for it. Currently, he is denying chest pain, shortness of breath, nausea, vomiting, diarrhea. Denies any fevers or chills. Has not traveled outside the country and has no known exposures or other illnesses. Vital signs on presentation do so significantly elevated blood pressure. Otherwise they are unremarkable. Timeframe does not make the patient a candidate for acute stroke intervention. He will be evaluated as such though. CT CT angiography of the head and neck will all be ordered at this time. Review the patient's labs from the 13th of this month showed normal creatinine as well as GFR. CBC chemistry repeat labs will be ordered along with urinalysis. Patient will be provided with fluids and meclizine. We will monitor closely. His physical exam shows a well-appearing male who does not appear to be in any specific distress. He did ambulate back from the triage area to his bed without any difficulty or visible signs of ataxia. On my evaluation his head is atraumatic. His pupils are equal round reactive. He does have bilateral nystagmus that does not appear to fatigue. Is difficult to differentiate whether or not this is rotatory when he has an upward gaze or downward gaze he does not have any nystagmus noted. His oropharynx is patent uvulas midline. He has no stridor no trismus. He has full range of motion of the neck. No bruits are auscultated. He moves his upper and lower extremities without any deficit or difficulty. He has no visible signs of facial asymmetry or neurologic deficits at this time. Concern is still noted for vascular related etiology to the symptoms here today. He will be treated as such and then discuss disposition. Patient may require admission for continuation of care. Lungs are clear heart is regular abdomen is soft. We will continue to monitor closely until the disposition is determined. See detailed documentation of the physical exam, medical intervention, medical decision-making and disposition in the resident physician's note. Again, the timeframe of the symptom onset is been several days with a slow progression. Patient has not had any tick bites or other exposure to note at this time. 1215 CT angiography of the head and neck did not show any acute or significant vascular abnormalities at this point. Patient is still having the dizziness. He will be admitted for continuation of care secondary to the concerning findings with central versus peripheral vertigo-like presentation. Hospitals will be contacted at this point for the admission process to be completed. Blood pressure resolved 140/85 without any intervention. 1250 Patient was discussed with the hospitalist Dr. Toledo. Detailed review the pre sentation, symptoms, imaging modalities and recommendations for admission were discussed at length. No acute etiology noted on the CT angiography of the head and neck outside of fibrous related presentation to the posterior carotid area bilaterally. No visible signs of stroke or vascular significant stenosis at this time. Patient will be admitted for continuation of care and observation. No other acute etiology noted during the treatment course. Patient will be observed here in the emergency room until admission process is completed.
[2018-04-06] MEDS ORDERED: *HR* Labetalol 20 MG/4 ML SYRINGE IVP ONE (11:41)
[2018-04-06] MEDS ORDERED: Aspirin 325 MG TABLET PO ONE (12:42)
--- NOTE | 2018-04-06 12:50 | Emergency Department Note ---
Disposition Clinical Impression: Dizziness, Nystagmus HTN (hypertension) Qualifiers: Hypertension type: unspecified Qualified Code(s): I10 - Essential (primary) hypertension Disposition: Admitted As Inpatient Condition: Fair Time of Disposition: 13:00 Dizziness HPI - General Chief Complaint: ED Dizziness Stated Complaint: Dizzy Time Seen by Provider: 04/06/18 10:06 Source: patient, family () Limitations: no limitations Nursing Notes Reviewed: Yes Vital Signs Reviewed: Yes - History of Present Illness HPI Narrative: 62-year-old male presents emergency department with the complaint of dizziness and neck pain. He states his been experiencing some posterior neck pain for the past several days up to 2-3 days. He has also been experiencing some intermittent dizziness which she describes as being drunk. He denies the room sp inning but only feeling off-balance on his feet. He denies any lightheadedness or feelings of passing out. Certain head movements to make it worse however it is not every time. He denies any recent of viral illnesses, changes in hearing, ringing in the ears. This morning he woke up and noticed some right arm numbness. Last night it was only around the shoulder but this morning it seems to be further down the arm. He denies any weakness. He denies any recent injury fall or trauma. He states his had a history of this dizziness in the past however typically resolves after a few hours. He has never been seen or evaluated for this in the past however. He is denying any chest pain shortness of breath. Does feel nauseated denies any vomiting. Denies any recent illness fever cough congestion. No recent travel. He does not take any anticoagulants. He denies any alcohol use. Pt Subjective Complaint: dizziness - Related Data Home Medications Medication Instructions Recorded Confirmed Gabapentin [Neurontin] 300 mg PO HS 05/12/17 04/06/18 Albuterol Sulfate [Ventolin Hfa] 2 puff IH Q4H PRN 08/08/17 04/06/18 Omeprazole [PriLOSEC] 40 mg PO DAILY 08/08/17 04/06/18 Tamsulosin [Flomax] 0.4 mg PO BID 08/08/17 04/06/18 Amlodipine Besylate 5 mg PO BID 04/06/18 04/06/18 Bacitracin 1 appl BOTH EYES HS 04/06/18 04/06/18 Dextran 70/Hypromellose 1 drop BOTH EYES QID PRN 04/06/18 04/06/18 [Artificial Tears] Diclofenac Sodium [Voltaren] 75 mg PO BID 04/06/18 04/06/18 Ketorolac OPTH Soln [Acular] 1 drop BOTH EYES DAILY 04/06/18 04/06/18 Losartan Potassium 25 mg PO DAILY 04/06/18 04/06/18 Ondansetron HCl [Zofran] 4 mg PO Q8-12H PRN 04/06/18 04/06/18 Oxymetazoline [Afrin] 1 spray NS Q12HR PRN 04/06/18 04/06/18 Allergies Allergy/AdvReac Type Severity Reaction Status Date / Time No Known Allergies Allergy Verified 04/06/18 13:29 All systems ED: reviewed and negative except as stated. Review of Systems: As Per HPI Constitutional: Denies: fever, chills, weakness Eyes: Denies: eye pain, vision change ENT ED: Denies: ear pain, congestion, dysphagia Cardiovascular: Denies: chest pain, syncope Respiratory: Denies: cough, dyspnea Gastrointestinal: Reports: nausea. Denies: abdominal pain, vomiting Genitourinary: Denies: urgency, dysuria Musculoskeletal: Reports: neck pain. Denies: back pain Integumentary: Denies: rash, abrasion Neurological: Reports: numbness, abnormal gait. Denies: headache, weakness, paresthesias, confusion, vertigo Past Medical History - Past Medical History Attestation: Yes The following information was validated with the patient. Source: patient Medical history: Reports: arthritis, asthma, GERD, hyperlipidemia, hypertension, renal disease Surgical history: Reports: orthopedic, other Psychiatric history: Reports: no psych history - Social History Smoking Status: Former smoker Smokeless Tobacco Status: No Alcohol use: Reports: none Drug use: Reports: none Physical Exam - General Limitations: no limitations General appearance: alert, in no apparent distress - Head Head exam: atraumatic, normocephalic, normal inspection - Expanded Head Exam Head exam physicial: Absent: laceration, abrasion, contusion, hematoma - Eye Eye exam: Present: normal appearance, PERRL, EOMI, nystagmus (Bilateral nystagmus with a rotary component even at rest). Absent: scleral icterus - ENT ENT exam: normal exam, normal oropharynx, mucous membranes moist, TM's normal bilaterally - Neck Neck exam: Present: normal inspection, full ROM, trachea midline, tenderness - Expanded Neck Exam Neck exam focused ED: Present: paraspinal tenderness (Left). Absent: midline tenderness - Chest Chest inspection: Present: normal inspection, symmetric chest wall rise - Respiratory Respiratory exam: Present: normal lung sounds bilaterally - Cardiovascular Cardiovascular exam: Present: regular rate, normal rhythm, normal heart sounds. Absent: systolic murmur, diastolic murmur - Expanded Cardiovascular Exam Peripheral pulses: 2+: radial (R), radial (L) - Abdominal Exam Abdominal exam: Present: soft, Non-Tender, normal bowel sounds. Absent: tenderness, distention, guarding, rebound, rigidity - Extremities Exam Extremities exam: Present: normal inspection, full ROM, normal capillary refill. Absent: tenderness, pedal edema - Back Exam Back exam: Present: normal inspection, full ROM. Absent: tenderness - Neurological Exam Neurological exam: Present: alert, oriented X3, CN II-XII intact - Expanded Neurological Exam Patient oriented to: Present: person, place, time Speech: Present: fluid speech Cranial nerves: EOM function (II, III, IV, ): Normal, facial sensation (V): Normal, facial palsy (VII): Normal, gag reflex (IX): Normal, spinal accessory function (XI): Normal, tongue deviation (XII): Normal Cerebellar function: wide-based gait, ataxic gait Motor strength - LUE: 5/5 Motor strength - RUE: 5/5 Motor strength - LLE: 5/5 Motor strength - RLE: 5/5 Upper motor neuron exam: raul neglect: Absent bilaterally Sensory exam upper extremity: light touch: Normal Sensory exam lower extremity: light touch: Normal Coma Scale Eye Opening: Spontaneous Coma Scale Motor Response: Obeys Commands Coma Scale Verbal Response: Oriented Coma Scale Total: 15 - Psychiatric Psychiatric exam: Present: normal affect, normal mood - Skin Skin exam: Present: warm, dry, intact, normal color. Absent: rash, cyanosis, diaphoresis Course Course Narrative: Patient presents with dizziness and neck pain ongoing for the past few days. It was worse today. He is denying any other complaints. His nystagmus appears bilateral even at rest and not fixed on any object with eye motion. It does not appear fatiguable. It is intermittent and has several components concerning for central vertigo versus peripheral. His cranial nerves 2 through 12 appear intact. He is otherwise awake alert and oriented to person place and time. However when he ambulated to urinate he walked with a wide base gate and was ataxic in appear to almost fall. He certainly outside the window for acute stroke is the symptoms have been going on for several days. At this time will evaluate with CT of the head and neck angiogram. His blood pressure is elevated which she has a history of hypertension and admits no recent changes to his medications. - Reevaluation(s) Reevaluation #1: Review of his labs appear unremarkable. CT imaging of his head shows less than 50% internal carotid stenosis. His symptoms has not improved with the meclizine. At this time patient would benefit admission and continuation of his care with further evaluation such as MRI. He initially was hypertensive and labetalol was ordered. Prior to administration repeat check of his blood pressure improved to systolic 140. The labetalol was not administered. Patient is in agreement with this planter admission further evaluation. At this time he is not demonstrate any visible signs of stroke or vascular compromise. Impression is dizziness nystagmus and hypertension. - Consultations Consultation #1: Spoke with on-call hospitalist arnel Pena to admit for dizziness, nystagmus, ataxic gait. No further orders at this time Time: 13:00 Vital Signs Temperature 97.8 F 04/06/18 10:06 Pulse Rate 75 04/06/18 10:06 Respiratory Rate 18 04/06/18 10:06 Blood Pressure 215/116 04/06/18 10:06 O2 Sat by Pulse Oximetry 98 04/06/18 10:06 Temperature 97.9 F 04/06/18 18:54 Pulse Rate 60 04/06/18 18:54 Respiratory Rate 16 04/06/18 18:54 Blood Pressure 123/74 04/06/18 18:54 O2 Sat by Pulse Oximetry 99 04/06/18 18:54 Oxygen Delivery Oxygen Delivery Room Air Dizziness - MDM Narrative Medical decision making narrative: Patient was discussed with my attending physician who agrees with ED management and final disposition. They independently evaluated the patient. Please refer to their attestation to this encounter for additional information. This note was generated by [employer] voice recognition software and as a result grammatical or spelling errors may occur using this program. - Medical Records Medical records reviewed: Yes I reviewed the patient's medical records. - Lab Data Lab results reviewed: Yes I reviewed the patient's lab results. Result diagrams: 04/06/18 10:38 04/06/18 10:38 Lab Results 04/06/18 04/06/18 04/06/18 Range/Units 10:38 10:38 11:00 WBC 5.2 (4.3-11.1) K/mcL RBC 4.75 (4.19-5.50) M/mcL Hgb 14.3 (12.9-16.9) g/dL Hct 42.4 (37.5-50.1) % MCV 89.3 (83.0-100.0) fL MCH 30.1 (28.0-33.3) pg MCHC 33.7 (31.6-35.5) g/dL RDW 12.8 (11.5-14.5) % Plt Count 160 (140-400) K/mcL MPV 12.2 (9.4-12.4) fL Immature Gran % 0.2 (0-4) % Seg Neutrophils % 72.0 % Lymphocytes % 20.5 % Monocytes % 6.5 % Eosinophils % 0.6 % Basophils % 0.2 % Neutrophils # 3.8 (1.6-8.9) K/mcL Lymphocytes # 1.1 (0.6-4.6) K/mcL Monocytes # 0.3 (0.0-1.3) K/mcL Eosinophils # 0.0 (0.0-0.6) K/mcL Basophils # 0.0 (0.0-0.2) K/mcL Sodium 139 (136-145) mEq/L Potassium 3.9 (3.5-5.1) mEq/L Chloride 106 (98-107) mEq/L Carbon Dioxide 27 (23-29) mEq/L BUN 11 (8-23) mg/dL Creatinine 0.86 (0.70-1.30) mg/dL Est GFR ( Amer) > 60 (> 60) Est GFR (Non-Af Amer) > 60 (> 60) BUN/Creatinine Ratio 13 (6-26) Glucose 123 H (70-105) mg/dL Calculated Osmolality 289 (280-300) Calcium 9.1 (8.6-10.3) mg/dL Troponin I < 0.03 (< 0.04) ng/mL Urine Color Yellow (Yellow) Urine Clarity Clear (Clear) Urine pH 7.5 (5.0-8.0) pH Units Ur Specific [place] 1.013 (1.010-1.025) Urine Protein Negative (Neg-Trace) mg/dL Urine Glucose (UA) Normal (Normal) mg/dL Urine Ketones Negative (Negative) mg/dL Urine Blood Negative (Negative) Urine Nitrite Negative (Negative) Urine Bilirubin Negative (Negative) Urine Urobilinogen Normal (Normal) mg/dL Ur Leukocyte Esterase Negative (Negative) Ur Culture Indicated? NO (NO) - Radiology Data Radiology results reviewed: Yes I reviewed the patient's radiology results. Chest X-Ray 04/06/18 10:30 IMPRESSION: 1. No acute radiographic abnormality in the chest. D/ / John Cleaning MD / John Cleaning MD Interpreting Provider: John Cleaning MD Head CTA 04/06/18 10:58 IMPRESSION: No acute intracranial abnormality. Mild, less than 50%, stenosis of the internal carotid arteries by NASCET criteria. Short segment, beaded appearance of the distal cervical internal carotid arteries may reflect fibromuscular dysplasia. No intracranial flow-limiting stenosis. D/ / 04/06/2018 12:32:57 Sidney Gaffney MD / [facility] Interpreting Provider: Sidney Gaffney MD Neck CTA 04/06/18 10:58 IMPRESSION: No acute intracranial abnormality. Mild, less than 50%, stenosis of the internal carotid arteries by NASCET criteria. Short segment, beaded appearance of the distal cervical internal carotid arteries may reflect fibromuscular dysplasia. No intracranial flow-limiting stenosis. D/ / 04/06/2018 12:32:57 Sidney Gaffney MD / [facility] Interpreting Provider: Sidney Gaffney MD Brain MRI 04/06/18 12:50 IMPRESSION: Unremarkable MRI of the brain. No acute intracranial abnormality. D/ / 04/06/2018 15:23:29 Sidney Gaffney MD / ora Interpreting Provider: Sidney Gaffney MD - EKG Data EKG attestation: Yes I reviewed and interpreted this EKG. EKG results narrative: EKG performed 1027 normal sinus rhythm 67 bpm, normal axis, good R wave progression, no ST elevations or depression, intervals appear within normal li mits. Compared to prior EKG performed 06/24/2017 which shows similar consistent findings. No acute ischemic changes. Attestation Statement - Attestation Attestation: I, Brent Webber DO, examined this patient [id number] and my medical decision-making was reviewed with Chava Ospina DO , Resident Physician. I agree with the documented findings, disposition and treatment plan as described except to the extent set forth below. Please see my progress notes for details.
[2018-04-06] MEDS ORDERED: Naloxone 0.4 MG/ML INJ IVP PRN ×2 (14:03→14:35)
[2018-04-06] MEDS ORDERED: Artificial Tears SOLN 15 ML BOTTLE BOTH EYES PRN (15:11)
[2018-04-06] MEDS ORDERED: Ondansetron ODT 4 MG TAB.RAPDIS PO PRN (15:11)
--- NOTE | 2018-04-06 15:18 | Internal Med History&Physical ---
Date of Encounter: 04/06/18 Time of Encounter: 15:19 Internal Medicine - H&P: HPI Chief complaint: dizziness, Rt neck pain, Rt arm paresthesias Admitted From: Home Plans for Post Hospital Care: Home History of present illness: Mr. Botello is a 62 year old male with a PMH of arthritis, asthma, GERD, hyperlipidemia, hypertension, and renal disease. He presents to the ED for evaluation of right-sided neck pain, paresthesias in his right arm as well as profound dizziness. He reports that the pain and paresthesias began a pproximately 2-3 days ago. However, he notes that the dizziness began this morning and getting progressively worse throughout the afternoon. He reports that the dizziness is worsened with movement but does not get any better with rest and is constant. He denies any ill contacts or foreign travel, denies any fever, chills, nausea, vomiting, diarrhea, chest pain, shortness of breath, headache, vision changes, syncope/near syncope, unilateral extremity swelling and/or pain. He does note that he has a history of BPPV has had to undergo vestibular therapy on multiple occasions. Additionally of note the patient was found to have accelerated hypertension in the ED with SBP of 215/115. There is concerning of central versus peripheral etiology as the patient was found to have bilateral non-fatiguing horizontal nystagmus. However, he reports that he has had this nystagmus since childhood. In regards to the neck pain and right arm paresthesias he denies any limitations to range of motion of his neck. Does not have any presentation concerning for meningitis at this time. He is being admitted to rule out vascular etiology for symptoms. Past Med Surg Social Fam HX - Past Medical History Medical history: arthritis, asthma, GERD, hyperlipidemia, hypertension, renal disease Psychiatric history: no psych history - Past Surgical History Surgical History: orthopedic, other Additional surgical history: left hip, hernia surgery - Social History Smoking Status: Former smoker Smokeless Tobacco Status: No Alcohol use: none Drug use: none - Family History Father Hx Family Cardiac Disorders: Yes Sister Hx Family Cardiac Disorders: Yes Internal Medicine - H&P: Meds Gabapentin [Neurontin] 300 mg PO HS 05/12/17 [History] Albuterol Sulfate [Ventolin Hfa] 2 puff IH Q4H PRN 08/08/17 [History] Omeprazole [PriLOSEC] 40 mg PO DAILY 08/08/17 [History] Tamsulosin [Flomax] 0.4 mg PO BID 08/08/17 [History] Amlodipine Besylate 5 mg PO BID 04/06/18 [History] Bacitracin 1 appl BOTH EYES HS 04/06/18 [History] Dextran 70/Hypromellose [Artificial Tears] 1 drop BOTH EYES QID PRN 04/06/18 [History] Diclofenac Sodium [Voltaren] 75 mg PO BID 04/06/18 [History] Ketorolac OPTH Soln [Acular] 1 drop BOTH EYES DAILY 04/06/18 [History] Losartan Potassium 25 mg PO DAILY 04/06/18 [History] Ondansetron HCl [Zofran] 4 mg PO Q8-12H PRN 04/06/18 [History] Oxymetazoline [Afrin] 1 spray NS Q12HR PRN 04/06/18 [History] Allergy/AdvReac Type Severity Reaction Status Date / Time No Known Allergies Allergy Verified 04/06/18 13:29 All Systems PM: A 10-system review of systems was performed and is negative for pertinent findings except as documented above in the HPI. - Constitutional Constitutional: no chills, no fever(s), no night sweats - EENT Eyes: no change in vision, no discharge, no pain, no photophobia Ears: no ear discharge, no ear pain, no tinnitus Nose, mouth and throat: no dysphagia, no nasal discharge, no neck pain, no sore throat - Cardiovascular Cardiovascular ROS IM: no chest pain, no diaphoresis, no dyspnea, no irregular heart rhythm, no lightheadedness, no palpitations, no syncope - Respiratory Respiratory: no cough, no dyspnea, no wheezing, no excessive phlegm production - Gastrointestinal Gastrointestinal: no abdominal pain, no diarrhea, no hematemesis, no hematochezia, no melena, no nausea, no vomiting - Musculoskeletal Musculoskeletal ROS IM: no numbness, no tingling - Integumentary Integumentary IM: no rash, no unusual bruising - Neurological Neurological ROS: disequilibrium, dizziness, paresthesias (rt arm), tingling, vertigo, no abnormal hearing, no abnormal movements, no abnormal speech, no confusion, no frequent falls, no headache(s), no numbness - Constitutional Vitals: Temp Pulse Resp BP Pulse Ox 97.8 F 64 16 144/77 97 04/06/18 10:14 04/06/18 12:59 04/06/18 12:59 04/06/18 12:59 04/06/18 12:59 General appearance: Present: A&O X 3 Exam: PHYSICAL EXAMINATION: GENERAL: The patient is an elderly female who appears to be in a confused state secondary to advancing dementia. She is in no distress and is alert to self on ly HEENT: Head is normocephalic and atraumatic. Extraocular muscles are intact. Pupils are equal, round, and reactive to light and accommodation. NECK: Supple. No carotid bruits. No lymphadenopathy or thyromegaly. LUNGS: Clear to auscultation B/L AP and L. HEART: Regular rate and rhythm, S1, S2 without murmur. ABDOMEN: Soft, nontender, and nondistended. Positive bowel sounds. No hepatosplenomegaly was noted. EXTREMITIES: Without any cyanosis, clubbing, rash, lesions or edema. NEUROLOGIC: Cranial nerves II through XII are grossly intact with the exception of non-fatigable horizontal nystagmus which the patient reports is chronic since childhood. PSYCHIATRIC: Appropriate affect, denies SI/HI, without agitation or anxiety SKIN: No ulceration or induration present. Internal Med - H&P Results - Labs CBC & Chem 7: 04/06/18 10:38 04/06/18 10:38 Labs: Short CBC 04/06/18 Range/Units 10:38 WBC 5.2 (4.3-11.1) K/mcL Hgb 14.3 (12.9-16.9) g/dL Hct 42.4 (37.5-50.1) % Plt Count 160 (140-400) K/mcL Neutrophils # 3.8 (1.6-8.9) K/mcL BMP 04/06/18 10:38 Sodium 139 Potassium 3.9 Chloride 106 Carbon Dioxide 27 BUN 11 Creatinine 0.86 Glucose 123 H Calcium 9.1 Cardiac Enzymes 04/06/18 Range/Units 10:38 Troponin I < 0.03 (< 0.04) ng/mL Urine 04/06/18 Range/Units 11:00 Urine Color Yellow (Yellow) Urine Clarity Clear (Clear) Urine pH 7.5 (5.0-8.0) pH Units Ur Specific [place] 1.013 (1.010-1.025) Urine Protein Negative (Neg-Trace) mg/dL Urine Glucose (UA) Normal (Normal) mg/dL - Impressions Impressions Chest X-Ray 04/06/18 10:30 IMPRESSION: 1. No acute radiographic abnormality in the chest. D/ / John Cleaning MD / John Cleaning MD Interpreting Provider: John Cleaning MD Head CTA 04/06/18 10:58 IMPRESSION: No acute intracranial abnormality. Mild, less than 50%, stenosis of the internal carotid arteries by NASCET criteria. Short segment, beaded appearance of the distal cervical internal carotid arteries may reflect fibromuscular dysplasia. No intracranial flow-limiting stenosis. D/ / 04/06/2018 12:32:57 Sidney Gaffney MD / [facility] Interpreting Provider: Sidney Gaffney MD Neck CTA 04/06/18 10:58 IMPRESSION: No acute intracranial abnormality. Mild, less than 50%, stenosis of the internal carotid arteries by NASCET criteria. Short segment, beaded appearance of the distal cervical internal carotid arteries may reflect fibromuscular dysplasia. No intracranial flow-limiting stenosis. D/ / 04/06/2018 12:32:57 Sidney Gaffney MD / [facility] Interpreting Provider: Sidney Gaffney MD Brain MRI 04/06/18 12:50 IMPRESSION: Unremarkable MRI of the brain. No acute intracranial abnormality. D/ / 04/06/2018 15:23:29 Sidney Gaffney MD / [facility] Interpreting Provider: Sidney Gaffney MD - Assessment and plan (1) BPPV (benign paroxysmal positional vertigo) Current Visit: Yes Status: Acute Assessment and plan: H/O BPPV requiring vestibular therapy presents with dizziness and disequilibrium; worse with ambulation and/or head movement noted to have horizontal nystagmus whichh he reports as chronic since childhood Nonetheless given his presentation there is concern for central versus peripheral etiology DDX include BPV, vestibular labrynthitis/neuronitis. Also HTN could be contributing. He has not had any trauma, not on ototoxic drugs CTA head and neck without flow-limiting stenosis or acute abnormality MRI of brain obtained negative for acute intracranial findings Summary of hypertension on admission with BP 215/116 Dizziness improving with control of BP, consider HTN as contributing cause of dizziness, continue home anti-HTN meds PT/OT to eval for gait abnormalities; may benefit from vestibular therapy treat with meclizine UA negative Discuss [place] maneuvers Qualifiers: Laterality: bilateral Qualified Code(s): H81.13 - Benign paroxysmal vertigo, bilateral (2) Uncontrolled hypertension Current Visit: Yes Status: Acute Assessment and plan: HTN per hx uncontrolled Accelerated hypertension on admission 215/115 Dizziness improving with control of blood pressure Continue home anti-HTN medications Start PRN hydralazine for SBP greater than 160 (3) Dizziness Current Visit: Yes Status: Acute Assessment and plan: Treat as above (4) Nystagmus Current Visit: Yes Status: Chronic Assessment and plan: Chronic, patient reporting he has had this since childhood Neuroimaging negative for acute intracranial abnormalities (5) HLD (hyperlipidemia) Current Visit: No Status: Chronic Assessment and plan: Prehistory, continue home meds Qualifiers: Hyperlipidemia type: unspecified Qualified Code(s): E78.5 - Hyperlipidemia, unspecified - Time Spent With Patient Total time spent is greater than 50% in coordination of care (as documented) at patient's floor/unit and/or counseling patient: less than 15 minutes
[2018-04-06] MEDS: amLODIPine 5 MG TABLET PO SCH (20:34)
[2018-04-06] MEDS ORDERED: Gabapentin 300 MG CAPSULE PO SCH (21:00)
[2018-04-06] MEDS ORDERED: Neosporin Opth OINT 3.5 GM TUBE BOTH EYES SCH ×2 (21:00)
[2018-04-06 23:10] LABS: Vitamin B12 338 pg/mL (250-1100)
[2018-04-06 23:16] LABS: Folate > 22.3 ng/mL (3.0-16.0)
[2018-04-07 03:51] LABS: Hematocrit 40.1 % (37.5-50.1); Hemoglobin 13.1 g/dL (12.9-16.9); Mean Corpuscular HGB Conc 32.7 g/dL (31.6-35.5); Mean Corpuscular Hemoglobin 29.8 pg (28.0-33.3); Mean Corpuscular Volume 91.3 fL (83.0-100.0); Mean Platelet Volume 12.7 fL (9.4-12.4); Platelet Count 166 K/mcL (140-400); Red Blood Count 4.39 M/mcL (4.19-5.50)
[2018-04-07 04:17] LABS: BUN/Creatinine Ratio 12 (6-26); Blood Urea Nitrogen 10 mg/dL (8-23); Calcium 8.5 mg/dL (8.6-10.3); Carbon Dioxide 28 mEq/L (23-29); Chloride 108 mEq/L (98-107); Glucose 97 mg/dL (70-105); Osmolality,Calculated 291 (280-300); Potassium 3.9 mEq/L (3.5-5.1); Sodium 141 mEq/L (136-145); eGFR For Non-African Americans > 60 (> 60)
[2018-04-07] MEDS: 0.9 % Sodium Chloride 1,000 ML IVC SCH ×2 (04:32→08:08)
[2018-04-07] MEDS ORDERED: *HR* Enoxaparin 40 MG/0.4 ML SYRINGE SQ SCH (07:00)
[2018-04-07 07:45] VITALS: BP 147/87
[2018-04-07] MEDS: amLODIPine 5 MG TABLET PO SCH (08:07)
--- NOTE | 2018-04-07 08:49 | Discharge Summary ---
- NOTES TO OUTPATIENT PROVIDER Notes to Outpatient Provider: BPV; started on meclizine. Had CT and MR head to r/o CVA; RULED OUT. Sending for vestibular rx. f/u with PCP in 1-week. Date of Encounter: 04/07/18 Time of Encounter: 08:47 - Discharge Diagnosis (1) Dizziness Priority: Secondary Status: Acute Assessment and Plan: most likely peripheral cause h/o BPV neuroimaging negative for acute pathology improved yesterday with meclizine d/c with rx meclizine and vestibular therapy (2) BPPV (benign paroxysmal positional vertigo) Priority: Primary Status: Acute Assessment and Plan: ruled out central cause h/o BPV dizziness worse with position change, head movement and activity improved with meclizine has had vestibular rx in past and reports that it did help as above Qualifiers: Laterality: bilateral Qualified Code(s): H81.13 - Benign paroxysmal vertigo, bilateral (3) Uncontrolled hypertension Priority: Secondary Status: Acute Assessment and Plan: HTN per hx uncontrolled Accelerated hypertension on admission 215/115 Dizziness improving with control of blood pressure Continue home anti-HTN medications Start PRN hydralazine for SBP greater than 160 04/07/18--BP improved with resuming home anti-HTN meds, will give Rx at d/c for losartan and amlodipine (4) Nystagmus Priority: Secondary Status: Chronic (5) HLD (hyperlipidemia) Priority: Secondary Status: Chronic Assessment and Plan: dietary modifications Qualifiers: Hyperlipidemia type: unspecified Qualified Code(s): E78.5 - Hyperlipidemia, unspecified Hospital course: Mr. Botello is a 62 year old male who presented with worsening dizziness 24 hours prior to arrival. He does have a history of BPV however, in the ED was noted to have non-fatigable horizontal nystagmus which was found to be chronic. Neuro imaging of brain head and neck was negative for acute pathology. Also on arrival he was noted to have accelerated hypertension. Has BP improved so did his dizziness. Additionally, he was given meclizine and reports that this is also helping his dizziness. He is being discharged home today with prescriptions for home antihypertensive medications as well as meclizine and orders for vestibular therapy. Discharge discussed with: patient, nurse - Time Spent with Patient Total time spent providing and/or coordinating discharge services: Less than 30 minutes - Discharge Medications Prescriptions: Amlodipine Besylate 5 mg PO BID 30 Days #15 tablet Losartan Potassium 25 mg PO DAILY 30 Days #30 tablet Meclizine [Antivert] 25 mg PO TID PRN 30 Days #180 tablet PRN Reason: Dizziness Home Medications: Gabapentin [Neurontin] 300 mg PO HS 05/12/17 [History] Albuterol Sulfate [Ventolin Hfa] 2 puff IH Q4H PRN 08/08/17 [History] Omeprazole [PriLOSEC] 40 mg PO DAILY 08/08/17 [History] Tamsulosin [Flomax] 0.4 mg PO BID 08/08/17 [History] Bacitracin 1 appl BOTH EYES HS 04/06/18 [History] Dextran 70/Hypromellose [Artificial Tears] 1 drop BOTH EYES QID PRN 04/06/18 [History] Diclofenac Sodium [Voltaren] 75 mg PO BID 04/06/18 [History] Ketorolac OPTH Soln [Acular] 1 drop BOTH EYES DAILY 04/06/18 [History] Ondansetron HCl [Zofran] 4 mg PO Q8-12H PRN 04/06/18 [History] Oxymetazoline [Afrin] 1 spray NS Q12HR PRN 04/06/18 [History] Amlodipine Besylate 5 mg PO BID 30 Days #15 tablet 04/07/18 [Rx] Losartan Potassium 25 mg PO DAILY 30 Days #30 tablet 04/07/18 [Rx] Meclizine [Antivert] 25 mg PO TID PRN 30 Days #180 tablet 04/07/18 [Rx] Allergies/Adverse Reactions: Allergy/AdvReac Type Severity Reaction Status Date / Time No Known Allergies Allergy Verified 04/06/18 13:29 Date of admission: 04/06/18 13:02 Primary care physician: PCP NONE Consults: 04/06/18 15:26 Consult to Occupational Therapy [CONS] Routine Comment: Evaluate, develop and implement POC Reason for Consult: dizziness and disequilibrium Does patient have active BEDREST order?: No Is patient medically & hemodynamically stable?: Yes Patient assessed for mobility or mobilized this visit?: Yes Consult to Physical Therapy [CONS] Routine Comment: Evaluate, develop and implement POC Reason for Consult: dizziness and disequilibrium Does patient have active BEDREST order?: No Is patient medically & hemodynamically stable?: Yes Patient assessed for mobility or mobilized this visit?: Yes Discharging clinician: Roderick Valencia Anticipated date of discharge: 04/07/18 - Constitutional Vitals: Temp Pulse Resp BP Pulse Ox 97.4 F L 54 14 147/87 98 04/07/18 07:44 04/07/18 07:44 04/07/18 07:44 04/07/18 07:44 04/07/18 07:44 General appearance: Present: A&O X 3 Exam: PHYSICAL EXAMINATION: GENERAL: Alert and oriented male in no apparent distress. HEENT: Head is normocephalic and atraumatic. Extraocular muscles are intact. Pupils are equal, round, and reactive to light and accommodation. NECK: Supple. No carotid bruits. No lymphadenopathy or thyromegaly. LUNGS: Clear to auscultation B/L AP and L. HEART: Regular rate and rhythm, S1, S2 without murmur, rubs or gallops. ABDOMEN: Soft, nontender, and nondistended. Positive bowel sounds. No hepatosplenomegaly was noted. EXTREMITIES: Without any cyanosis, clubbing, rash, lesions or edema. NEUROLOGIC: Cranial nerves II through XII are grossly intact. PSYCHIATRIC: Appropriate affect, denies SI/HI, without agitation or anxiety SKIN: No ulceration or induration present. - Patient Status Disposition: Home, Self-Care Condition: Fair Functional capacity at discharge: independent ambulation Overall status at discharge: patient is progressing back to baseline - Discharge Instructions Instructions: Chronic Hypertension (DC) Follow Up With: NONE,PCP [Primary Care Provider] - - Diet and Activity Activity: increase activity as tolerated, resume usual activities as tolerated Diet: diabetic diet, low fat, low cholesterol, low salt diet
[2018-04-07] MEDS ORDERED: Ketorolac OPTH Soln 5 ML BOTTLE BOTH EYES SCH (09:00)
[2018-04-07] MEDS ORDERED: Aspirin 81 MG TAB.CHEW PO SCH (09:00)
--- NOTE | 2018-04-09 09:12 | Electrocardiograph Report ---
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
== END 2018-04-07 10:37 | disposition home or self-care (01) ==
LOC: 2NENU 10:02 → EMEROOARM 10:02 → 2NENU 13:29 → 3BNU 13:46
PROVIDERS: ADMIT Internal Medicine; ATTEND Internal Medicine